=== PATIENT | female | born 1980 | race Native Hawaiian/Other Pacific Islander ===

== ENCOUNTER 2016-09-29 15:21 | Outpatient (CLI) | payer OTHER ==
[2016-09-29 15:43] LABS: PLATELET COUNT 232 K/uL (152-353)
[2016-09-29 16:02] LABS: POTASSIUM 4.2 mmol/L (3.6-5.2); SODIUM 136 mmol/L (136-145)
== END 2016-09-29 19:09 | disposition home or self-care (01) ==
LOC: LAB 15:21
PROVIDERS: Nurse Practitioner Family
DX: E11.9 Type 2 diabetes mellitus without complications (principal); I10 Essential (primary) hypertension; R53.83 Other fatigue; R53.81 Other malaise; E55.9 Vitamin D deficiency, unspecified
CPT/HCPCS: 80053; 80061; 82306; 82607; 83036; 84436; 84443; 85027

== ENCOUNTER 2016-10-20 10:10 | Outpatient (CLI) | payer OTHER | END 2016-10-20 19:03 | disposition home or self-care (01) | LOC: RESP 10:10 | DX: R06.02 Shortness of breath (principal) | CPT/HCPCS: 94640; 94664 ==

== ENCOUNTER 2016-11-15 11:05 | Outpatient (CLI) | payer OTHER | END 2016-11-15 12:05 | disposition home or self-care (01) | LOC: CT 11:05 | DX: R91.8 Other nonspecific abnormal finding of lung field (principal) | CPT/HCPCS: Q9963 ==

== ENCOUNTER 2017-05-07 20:06 | Emergency (ER) | payer OTHER ==
[~2017-05-07] VITALS: Ht 172.7 cm; Wt 148.3 kg
== END 2017-05-07 21:30 | disposition home or self-care (01) ==
LOC: ED 20:06
DX: S93.492A Sprain of other ligament of left ankle, initial encounter (principal); W17.2XXA Fall into hole, initial encounter; Y92.098 Other place in other non-institutional residence as the place of occurrence of the external cause
CPT/HCPCS: 96372; 99282; J1885

== ENCOUNTER 2017-05-16 13:40 | Outpatient (CLI) | payer OTHER ==
[2017-05-16 14:09] LABS: PLATELET COUNT 251 K/uL (152-353)
== END 2017-05-16 21:13 | disposition home or self-care (01) ==
LOC: LAB 13:40
PROVIDERS: Nurse Practitioner Family
DX: I10 Essential (primary) hypertension (principal); E11.9 Type 2 diabetes mellitus without complications; K21.9 Gastro-esophageal reflux disease without esophagitis; E78.4 Other hyperlipidemia; R53.81 Other malaise; R53.83 Other fatigue
CPT/HCPCS: 80053; 80061; 83036; 84436; 84443; 85027

== ENCOUNTER 2017-05-27 12:19 | Outpatient (CLI) | payer OTHER ==
[2017-05-27 13:13] LABS: PLATELET COUNT 217 K/uL (152-353)
[2017-05-27 13:25] LABS: POTASSIUM 3.9 mmol/L (3.6-5.2)
== END 2017-05-27 21:07 | disposition home or self-care (01) ==
LOC: LABW 12:19
PROVIDERS: Obstetrics & Gynecology Gynecologic Oncology
DX: Z01.818 Encounter for other preprocedural examination (principal)
CPT/HCPCS: 36415; 80048; 85027; 93005

== ENCOUNTER 2017-10-31 09:15 | Outpatient (CLI) | payer OTHER | END 2017-10-31 23:01 | disposition home or self-care (01) | LOC: MRI 09:15 | DX: G93.0 Cerebral cysts (principal) ==

== ENCOUNTER 2018-01-27 12:29 | Outpatient (CLI) | payer OTHER | END 2018-01-27 19:24 | disposition home or self-care (01) | LOC: LABW 12:29 | DX: E51.9 Thiamine deficiency, unspecified (principal); E53.8 Deficiency of other specified B group vitamins | CPT/HCPCS: 36415; 84425 ==

== ENCOUNTER 2018-03-15 09:33 | Outpatient (CLI) | payer OTHER | END 2018-03-15 20:14 | disposition home or self-care (01) | LOC: RAD 09:33 | DX: M54.2 Cervicalgia (principal) ==

== ENCOUNTER 2019-05-09 15:10 | Emergency (ER) | payer OTHER ==
[~2019-05-09] VITALS: Ht 172.7 cm; Wt 90.7 kg
[2019-05-09 15:10] VITALS: TEMP 98.4
[2019-05-09 15:55] LABS: PLATELET COUNT 217 K/uL (152-353); POTASSIUM 3.6 mmol/L (3.6-5.2); SODIUM 140 mmol/L (136-145)
[2019-05-09 17:19] VITALS: BP 134/63
== END 2019-05-09 17:19 | disposition home or self-care (01) ==
LOC: ED 15:10
PROVIDERS: Emergency Medicine
DX: R07.81 Pleurodynia (principal); M89.8X8 Other specified disorders of bone, other site
CPT/HCPCS: 80053; 82550; 82553; 84484; 85027; 93005; 96372; 99283; J1885

== ENCOUNTER 2019-05-18 13:14 | Outpatient (CLI) | payer OTHER | END 2019-05-18 19:40 | disposition home or self-care (01) | LOC: CT 13:14 | DX: C79.51 Secondary malignant neoplasm of bone (principal); C80.1 Malignant (primary) neoplasm, unspecified ==

== ENCOUNTER 2019-12-06 11:14 | Outpatient (CLI) | payer OTHER | END 2019-12-06 21:09 | disposition home or self-care (01) | LOC: RAD 11:14 | DX: R07.89 Other chest pain (principal) ==

== ENCOUNTER 2020-01-18 13:38 | Outpatient (CLI) | payer OTHER ==
[2020-01-18 14:56] LABS: PLATELET COUNT 221 K/uL (152-353)
[2020-01-18 15:08] LABS: POTASSIUM 3.6 mmol/L (3.6-5.2)
== END 2020-01-19 03:40 | disposition home or self-care (01) ==
LOC: LABW 13:38
PROVIDERS: Orthopaedic Surgery
DX: E53.8 Deficiency of other specified B group vitamins (principal); E61.1 Iron deficiency; E87.8 Other disorders of electrolyte and fluid balance, not elsewhere classified; E20.0 Idiopathic hypoparathyroidism; E51.9 Thiamine deficiency, unspecified; E61.0 Copper deficiency; E55.9 Vitamin D deficiency, unspecified
CPT/HCPCS: 36415; 80053; 82306; 82607; 82728; 82746; 83970; 84425; 85027

== ENCOUNTER 2020-02-04 10:27 | Outpatient (CLI) | payer OTHER | END 2020-02-04 22:29 | disposition home or self-care (01) | LOC: CT 10:27 | DX: R91.8 Other nonspecific abnormal finding of lung field (principal) ==

== ENCOUNTER 2020-05-27 17:05 | Outpatient (CLI) | payer OTHER ==
[2020-05-27 17:57] LABS: PLATELET COUNT 197 K/uL (152-353)
[2020-05-27 18:37] LABS: POTASSIUM 3.3 mmol/L (3.6-5.2)
== END 2020-05-27 22:55 | disposition home or self-care (01) ==
LOC: LAB 17:05
PROVIDERS: ATTEND Surgery
DX: E53.8 Deficiency of other specified B group vitamins (principal); E61.1 Iron deficiency; E87.8 Other disorders of electrolyte and fluid balance, not elsewhere classified; E20.0 Idiopathic hypoparathyroidism; E51.9 Thiamine deficiency, unspecified; E61.0 Copper deficiency; E55.9 Vitamin D deficiency, unspecified
CPT/HCPCS: 36415; 80053; 82306; 82607; 82728; 83970; 84425; 85027

== ENCOUNTER → 2020-05-28 17:35 | Outpatient (CLI) | payer OTHER | END | disposition home or self-care (01) | LOC: LAB 17:35 | PROVIDERS: ATTEND Surgery | DX: E53.8 Deficiency of other specified B group vitamins (principal); E61.1 Iron deficiency; E87.8 Other disorders of electrolyte and fluid balance, not elsewhere classified; E20.0 Idiopathic hypoparathyroidism; E51.9 Thiamine deficiency, unspecified; E61.0 Copper deficiency; E55.9 Vitamin D deficiency, unspecified | CPT/HCPCS: 36415; 82747 ==

== ENCOUNTER 2020-06-12 15:01 | Outpatient (CLI) | payer OTHER | END 2020-06-12 20:11 | disposition home or self-care (01) | LOC: LAB 15:01 | PROVIDERS: ATTEND Surgery | DX: E53.8 Deficiency of other specified B group vitamins (principal); E61.1 Iron deficiency; E87.8 Other disorders of electrolyte and fluid balance, not elsewhere classified; E20.0 Idiopathic hypoparathyroidism; E51.9 Thiamine deficiency, unspecified; E61.0 Copper deficiency; E55.9 Vitamin D deficiency, unspecified | CPT/HCPCS: 36415; 83970 ==

== ENCOUNTER 2020-07-25 13:07 | Emergency (ER) | payer OTHER ==
[~2020-07-25] VITALS: Ht 172.7 cm; Wt 93.4 kg
[2020-07-25 13:10] VITALS: TEMP 98
[2020-07-25 14:10] LABS: PLATELET COUNT 193 K/uL (152-353)
[2020-07-25 14:16] LABS: POTASSIUM 4.1 mmol/L (3.6-5.2)
[2020-07-25 15:03] VITALS: BP 132/77
== END 2020-07-25 15:03 | disposition home or self-care (01) ==
LOC: ED 13:07
PROVIDERS: Family Medicine
DX: R42 Dizziness and giddiness (principal); T40.7X5A Adverse effect of cannabis (derivatives), initial encounter; Y92.89 Other specified places as the place of occurrence of the external cause
CPT/HCPCS: 80053; 80307; 81000; 85027; 93005; 99283

== ENCOUNTER 2020-10-30 07:20 | Emergency (ER) | payer OTHER ==
[~2020-10-30] VITALS: Ht 172.7 cm; Wt 94.3 kg
[2020-10-30 07:27] VITALS: TEMP 97.9
[2020-10-30 08:33] LABS: PLATELET COUNT 219 K/uL (152-353)
[2020-10-30 08:42] LABS: POTASSIUM 3.9 mmol/L (3.6-5.2)
[2020-10-30 09:15] VITALS: BP 109/55
== END 2020-10-30 09:15 | disposition home or self-care (01) ==
LOC: ED 07:20
PROVIDERS: Emergency Medicine
DX: K85.80 Other acute pancreatitis without necrosis or infection (principal)
CPT/HCPCS: 80053; 80307; 81000; 82150; 83690; 85027; 96374; 96375; 99284; J2175; J2405

== ENCOUNTER → 2022-01-19 | Outpatient (CLI) | payer OTHER | LOC: RAD 10:26 | PROVIDERS: ATTEND Internal Medicine | DX: Z02.71 Encounter for disability determination (principal) ==

== ENCOUNTER 2022-09-03 13:07 | Emergency (ER) | payer OTHER ==
[~2022-09-03] VITALS: Ht 172.7 cm; Wt 95.3 kg
[2022-09-03 13:24] VITALS: BP 150/88; TEMP 97
== END 2022-09-03 19:16 | disposition home or self-care (01) ==
LOC: ED 13:07
DX: R51.9 Headache, unspecified (principal)
CPT/HCPCS: 96372; 99283; J2270; J2405

== ENCOUNTER 2022-12-27 12:43 | Outpatient (CLI) | payer OTHER | END 2022-12-27 19:09 | disposition home or self-care (01) | LOC: MAMMO 12:43 | PROVIDERS: ATTEND Nurse Practitioner Family | DX: R92.8 Other abnormal and inconclusive findings on diagnostic imaging of breast (principal) | CPT/HCPCS: G0279 ==

== ENCOUNTER 2023-01-26 16:28 | Outpatient (CLI) | payer OTHER | END 2023-01-26 19:31 | disposition home or self-care (01) | LOC: RAD 16:28 | PROVIDERS: ATTEND Student in an Organized Health Care Education/Training Program | DX: M54.12 Radiculopathy, cervical region (principal); M47.812 Spondylosis without myelopathy or radiculopathy, cervical region; M54.14 Radiculopathy, thoracic region; M47.814 Spondylosis without myelopathy or radiculopathy, thoracic region ==